=== PATIENT | male | born 1945 | race Caucasian/White ===

== ENCOUNTER 2024-01-17 11:01 | Emergency (ER) | payer MEDICARE, SELFPAY ==
[2024-01-17 11:26] VITALS: BP 175/92
--- NOTE | 2024-01-17 11:28 | ED.GENMED ---
History of Present Illness
General
Chief Complaint: Fall
Source: patient
Time Seen by Provider: 01/17/24 11:07
History of Present Illness
History of Present Illness:
78-year-old male who brought his to the emergency department for evaluation and while ambulating back to the room had an accidental trip and fall causing him to fall backwards into a door resulting in superficial abrasion of the scalp. Patient
denies any loss consciousness, headache, vomiting or visual changes. He denies any extremity related injuries as well. Patient's tetanus vaccine is up-to-date. He denies any use of anticoagulants. He has no other concerns at this time. He
states that he sometimes will trip but it is usually related to his shoes getting caught on the ground that causes him to fall.
Past History
Past History
ED Past Medical History: Other (Hyponatremia) and Other (Lupus)
ED Past Surgical History: Other (Hernia repair)
Social History
Tobacco: Non-smoker
Alcohol: None
Drug: None
Personal:
Living: with family
Employment: Not employed
Review of Systems
Review of Systems
All Other Systems: ROS reviewed and negative except as documented in HPI and ROS
Phy Exam
Physical Exam
Physical Exam:
GENERAL: Alert , in no apparent distress
EYE: conjunctiva clear
Head: Superficial skin tear to the right superior occiput without active bleeding
NECK: Supple, no midline tenderness
ENT: mmm.
LUNGS: no acute respiratory distress
NEUROLOGICAL: Alert and oriented
SKIN: Warm and dry, skin intact.
MUSCULOSKELETAL: well perfused. Moves all extremities without difficult
PSYCH: Normal and appropriate interaction.
Scores
Heart Failure Risk
Heart Failure Risk Score: Not Applicable
Heart Score for Chest Pain Patients
STEMI patient?: Not applicable
Withdrawal Assessment of Alcohol
Withdrawal Assessment Completed?: Not applicable
Course
Vital Signs
Initial and Last Documented VS:
Initial Vital Signs
Temp Pulse Resp BP Pulse Ox
98.3 F 99 16 175/92 98
01/17/24 11:26 01/17/24 11:26 01/17/24 11:26 01/17/24 11:26 01/17/24 11:26
Last Documented Vital Signs
Temp Pulse Resp BP Pulse Ox
98.3 F 99 16 175/92 98
01/17/24 11:26 01/17/24 11:26 01/17/24 11:26 01/17/24 11:26 01/17/24 11:26
MDM/Problems Addressed
Differential Diagnosis Includes:
Accidental trip and fall, scalp contusion, minimal to no concern for intracranial bleeding
MDM/Problems Addressed:
78-year-old male being seen for evaluation after he was here with his and had an accidental trip and fall while ambulating back to the patient's room. He does have a superficial skin tear noted however is in no acute distress. Discussed risk
versus benefit of CT imaging and patient ultimately decided to forego any imaging at this time. Since his is being worked up will monitor the patient in the ER and if any headache or other symptoms develop will then consider head CT. Patient
is agreeable with this plan.
*Pulse Oximetry
Patient hypoxic: no
*Critical Care Note
Total Time (30-74mins, 75-104mins- exclusive of procedures): Not Applicable
Data Reviewed
Further Testing Considered But Not Given:
CT head but patient declines
Patient Management
Escalation/DeEscalation of care consider admission/obs:
Patient ambulating with steady gait. Remains asymptomatic. Feels comfortable being discharged home. Aware of return precautions.
ED Attending Note
-
Portions of this chart may have been created with voice recognition software.� Occasional wrong word or��sound alike� substitutions may have occurred due to the inherent limitations of voice recognition software.
Discharge Plan
Departure
Patient Disposition: Home (Routine Discharge)
Date of Disposition: 01/17/24
Time of Disposition: 12:25
Patient with high blood pressure during this ER visit?: No
Discharge Problem:
Accidental fall, Abrasion of scalp
Instructions: Head Injury in Adults (DC)
Prescriptions:
No Action
atorvastatin 20 MG tablet
20 mg PO DAILY
lorazepam 0.5 MG tablet
0.5 mg PO DAILYPRN PRN (Reason: anxiety)
Patient Comments:
11/08/2021: last filled 08/01/21, 90 tabs for 90 days from [facility]
hydroxychloroquine 200 MG tablet
200 mg PO QPM
calcium carbonate-vitamin D3 [Oyster Shell Calcium-Vit D3] 500 MG tablet
1 tab PO DAILY
sodium chloride 1 GRAM tablet,soluble
2 g PO DAILY
Lactobac 2-Bifido 1-S. therm [High Potency Probiotic] 1 CAP capsule
1 cap PO DAILY
multivitamin with folic acid [Tab-A-Sidney] 1 TABLET tablet
1 tab PO DAILY
Referrals:
Ramu Walker MD [Family Provider] -
Interventions
Interventions:
*Risk Screen - Suicide Last Done: 01/17/24 11:26
*General Assessment Last Done: 01/17/24 11:26
*Neglect/Abuse Screening Last Done: 01/17/24 11:26
ED- Fall Risk Assessment Last Done: 01/17/24 11:26
*ED COVID-19 Vaccine History Last Done: 01/17/24 11:26
*Nursing Disposition Last Done: 01/17/24 12:45
ED-Musculoskeletal Assessment Last Done: 01/17/24 12:46
ED- Neurological Assessment Last Done: 01/17/24 11:26
ED-Skin Assessment Last Done: 01/17/24 11:26
Discharge Date and Time
Discharge Date/Time: 01/17/24 12:46
Print Language: VIETNAMESE
== END 2024-01-17 12:46 | disposition home or self-care (01) ==
LOC: EMR 11:01
PROVIDERS: EMERGENCY PHYSICIAN Student in an Organized Health Care Education/Training Program; FAMILY PHYSICIAN Family Medicine
DX: S00.01XA Abrasion of scalp, initial encounter (principal); W01.0XXA Fall on same level from slipping, tripping and stumbling without subsequent striking against object, initial encounter
CPT/HCPCS: 99282

== ENCOUNTER 2025-01-03 11:33 | Emergency (ER) | payer MEDICARE, SELFPAY ==
[2025-01-03 11:35] VITALS: BP 155/86
[2025-01-03 12:01] LABS: % Basophils 1.2 % (0-2); % Eosinophils 1.5 % (0-6); % Immature Granulocytes 0.1 % (0-0.5); % Lymphocytes 26.7 % (20.5-51.1); % Monocytes 10.4 % (1.7-9.3); % Neutrophils 60.1 % (42.2-75.2); Absolute Basophils 0.1 10^3/uL (0-0.2); Absolute Eosinophils 0.1 10^3/uL (0-0.7); Absolute Lymphocytes 2.2 10^3/uL (1.2-3.4); Absolute Monocytes 0.9 10^3/uL (0.1-0.6); Hematocrit 42.5 % (39.0-52.0); Hemoglobin 13.9 g/dL (13.0-18.0); Mean Corp Hgb Conc. 32.7 g/dL (33.0-37.0); Mean Corpuscular Hgb 29.9 pg (27.0-31.0); Mean Corpuscular Volume 91.4 fL (80.0-94.0); Mean Platelet Volume 10.2 fL (7.4-10.4); Nucleated Red Blood Cells % 0 % (-); Platelet Count 279 10^3/uL (130-400); Red Blood Cell Count 4.65 10^6/uL (4.70-6.10); Red Cell Dist. Width 13.6 % (11.5-14.5); White Blood Cell Count 8.3 10^3/uL (4.8-10.8)
[2025-01-03 12:03] LABS: Urine Albumin 3+ (Neg - Trace); Urine Bilirubin Negative (Negative); Urine Character Clear (Clear); Urine Color Yellow; Urine Glucose Negative (Negative); Urine Ketone Negative (Negative); Urine Leukocyte Negative (Negative); Urine Nitrite Negative (Negative); Urine Occult Blood 1+ (Negative); Urine Specific Gravity 1.015 (<1.030); Urine Urobilinogen Negative (Neg - 1+)
[2025-01-03 12:24] LABS: ALT (SGPT) 16 U/L (0-50); AST (SGOT) 25 U/L (17-59); Albumin 4.4 g/dl (3.5-5.0); Alkaline Phosphatase 78 U/L (38-126); Blood Urea Nitrogen 24 mg/dl (9-20); Calcium 9.6 mg/dl (8.4-10.2); Carbon Dioxide 28 mmol/L (22-30); Chloride 104 mmol/L (98-107); Glucose 104 mg/dl (70-99); Lipase 102 U/L (23-300); Potassium 5.1 mmol/L (3.5-5.1); Sodium 139 mmol/L (135-145); Total Bilirubin 0.8 mg/dl (0.2-1.3); Total Protein 7.8 g/dl (6.3-8.2); eGFR > 60.00
[2025-01-03 12:38] LABS: Urine Mucus Few
[2025-01-03 12:40] LABS: Urine Granular Cast 0-2 /LPF (0); Urine Urothelial Cell 0-2 /LPF (FEW)
[2025-01-03 12:41] LABS: Urine Bacteria Moderate (Negative)
--- NOTE | 2025-01-03 13:41 | ED.GENMED ---
History of Present Illness
<Con Dupont MD, Resident - Last Filed: 01/03/25 20:05>
General
Chief Complaint: Abdominal Pain
Source: patient and family
Exam Limitations: none
Time Seen by Provider: 01/03/25 13:35
Nursing documentation reviewed up to this point in time: agreed with
Travel History
Have you traveled to any high risk areas for coronavirus over the past 14 days?: No
History of Present Illness
History of Present Illness:
79-year-old male presenting in the ER with right-sided lower quadrant abdominal pain which started in the morning; was 9�10. Denies any aggravating or relieving factors. Patient states that he had similar pain last week which also stayed for 1
hour however today the pain was severe in intensity which prompted him to come to the ER. He states that when he had similar pain last week he was able to notice gurgling sounds and states that the area was very hard to touch. Denies any other
symptoms including nausea, vomiting and fever. No other recent changes in the medical history.
He has a known history of left-sided inguinal hernia repair many years ago.
If applicable-neuro sx onset
Onset of symptoms known: Yes
Date of onset of symptoms: 01/03/25
Past History
<Con Dupont MD, Resident - Last Filed: 01/03/25 20:05>
Past History
ED Past Medical History: HTN, Other (Hyponatremia) and Other (Lupus)
ED Past Surgical History: Other (Hernia repair left)
Patient has exhibited threatening behavior?: No
Social History
Tobacco: Non-smoker
Alcohol: None
Drug: None
Personal:
Living: with family
Employment: Not employed
Review of Systems
<Con Dupont MD, Resident - Last Filed: 01/03/25 20:05>
Review of Systems
Allergies reviewed?: Yes
Constitutional: Reports no symptoms
EENT: Reports no symptoms
Respiratory: Reports no symptoms
Cardiac: Reports no symptoms
ABD/GI: Reports abdominal pain (Resolved in the ER)
: Reports no symptoms
Musculoskeletal: Reports no symptoms
Skin: Reports no symptoms
Neurological: Reports no symptoms
Endocrine: Reports no symptoms
Hematologic/Lymphatic: Reports no symptoms
Psychiatric: Reports no symptoms
Phy Exam
<Con Dupont MD, Resident - Last Filed: 01/03/25 20:05>
General Physical Exam
General Presentation: well appearing and no apparent distress
General age: appears stated age
General Skin: warm
General Habitus: normal and elderly
General Hydration: appears well hydrated
Cardiovascular Exam
Cardiovascular Exam: regular rate/rhythm and no murmur
Gastrointestinal Exam
Gastrointestinal Exam: normal bowel sounds, non tender, soft, non distended, no inguinal hernia, no masses and other (No skin changes in the area of concern)
Genitourinary Exam Male
Exam Male: no testicular swelling and no testicular tenderness
Neurological Exam
Neurological Exam: alert, oriented x3 and no sensory deficits
Psychiatric Exam
Psychiatric Exam: normal mood/affect
Course
<Con Dupont MD, Resident - Last Filed: 01/03/25 20:05>
Orders/Labs/Results
Orders:
Orders
01/03/25 11:49
Complete Blood Count/With Diff Urgent
Comprehensive Metabolic Panel Urgent
Lipase Urgent
Urinalysis Reflex To Culture Urgent
Date Specimen was Collected: 01/03/25
Time Specimen was Collected: 11:42
Urine Microscopic Reflex Cult Urgent
Urine Culture Urgent
KARI Source: U
Specimen Description:
Date Specimen was Collected: 01/03/25
Time Specimen was Collected: 11:42
01/03/25 14:05
CT Abd/pelvis W Iv Cont Urgent
Comment:
Reason For Exam: RLQ pain
Abnormal Lab Results
01/03/25
11:49
RBC 4.65 L 10^6/uL
(4.70-6.10)
MCHC 32.7 L g/dL
(33.0-37.0)
Absolute Monos (auto) 0.9 H 10^3/uL
(0.1-0.6)
Monocytes % 10.4 H %
(1.7-9.3)
BUN 24 H mg/dl
(9-20)
Glucose 104 H mg/dl
(70-99)
Ur Occult Blood Reflex 1+ A
(Negative)
Urine RBC 3-6 A /HPF
(0-2)
Urine Bacteria (Reflex) Moderate A
(Negative)
Urine Albumin (Reflex) 3+ A
(Neg - Trace)
01/03/25 11:49
01/03/25 11:49
Vital Signs
Initial and Last Documented VS:
Initial Vital Signs
Temp Pulse Resp BP Pulse Ox
98.1 F 87 16 155/86 98
01/03/25 11:35 01/03/25 11:35 01/03/25 11:35 01/03/25 11:35 01/03/25 11:35
Last Documented Vital Signs
Temp Pulse Resp BP Pulse Ox
97.6 F 78 18 131/67 94
01/03/25 16:28 01/03/25 19:32 01/03/25 19:32 01/03/25 19:32 01/03/25 19:32
<Willow Franco MD - Last Filed: 01/03/25 19:09>
Orders/Labs/Results
Orders:
Orders
01/03/25 11:49
Complete Blood Count/With Diff Urgent
Comprehensive Metabolic Panel Urgent
Lipase Urgent
Urinalysis Reflex To Culture Urgent
Date Specimen was Collected: 01/03/25
Time Specimen was Collected: 11:42
Urine Microscopic Reflex Cult Urgent
Urine Culture Urgent
KARI Source: U
Specimen Description:
Date Specimen was Collected: 01/03/25
Time Specimen was Collected: 11:42
01/03/25 14:05
CT Abd/pelvis W Iv Cont Urgent
Comment:
Reason For Exam: RLQ pain
Abnormal Lab Results
01/03/25
11:49
RBC 4.65 L 10^6/uL
(4.70-6.10)
MCHC 32.7 L g/dL
(33.0-37.0)
Absolute Monos (auto) 0.9 H 10^3/uL
(0.1-0.6)
Monocytes % 10.4 H %
(1.7-9.3)
BUN 24 H mg/dl
(9-20)
Glucose 104 H mg/dl
(70-99)
Ur Occult Blood Reflex 1+ A
(Negative)
Urine RBC 3-6 A /HPF
(0-2)
Urine Bacteria (Reflex) Moderate A
(Negative)
Urine Albumin (Reflex) 3+ A
(Neg - Trace)
01/03/25 11:49
01/03/25 11:49
Vital Signs
Initial and Last Documented VS:
Initial Vital Signs
Temp Pulse Resp BP Pulse Ox
98.1 F 87 16 155/86 98
01/03/25 11:35 01/03/25 11:35 01/03/25 11:35 01/03/25 11:35 01/03/25 11:35
Last Documented Vital Signs
Temp Pulse Resp BP Pulse Ox
97.6 F 78 18 131/67 94
01/03/25 16:28 01/03/25 19:32 01/03/25 19:32 01/03/25 19:32 01/03/25 19:32
<Con Dupont MD, Resident - Last Filed: 01/03/25 20:05>
MDM/Problems Addressed
Differential Diagnosis Includes:
Right sided inguinal hernia vs testicular torsion(less likely) vs hydrocele(less likely) vs less likely AAA is also possibility due to blood in the urine
MDM/Problems Addressed:
Patient reports that patient is totally gone with benign inspection and palpation on physical exam. CBC unremarkable, CMP with mildly elevated BUN likely due to dehydration. Very likely that patient has indirect right-sided inguinal hernia. Given
hematuria on urinalysis we will get CT abdomen/pelvis to rule out any other causes including AAA or malignancy.
<Con Dupont MD, Resident - Last Filed: 01/03/25 20:05>
*Pulse Oximetry
SaO2: 98
Oxygen Mode of Delivery: Room air
Patient hypoxic: no
*Critical Care Note
Total Time (30-74mins, 75-104mins- exclusive of procedures): Not Applicable
ED Attending Note
<Con Dupont MD, Resident - Last Filed: 01/03/25 20:05>
-
Portions of this chart may have been created with voice recognition software.� Occasional wrong word or��sound alike� substitutions may have occurred due to the inherent limitations of voice recognition software.
<Willow Franco MD - Last Filed: 01/03/25 19:09>
ED Attending Note
Patient seen and examined by attending physician: Yes
I performed a history and physical exam of patient and discussed management with resident, I reviewed resident's note and agree with documented findings and plan of care.: Yes
ED Attending Note:
79-year-old male with history of left side inguinal hernia presenting to the emergency department right lower quadrant abdominal pain. Pain is he is at last week he developed right lower quadrant abdominal pain that was transient. This morning he
woke up and developed the same pain again but this time it was more intense. He felt a hard lump with gurgling sounds. No nausea or vomiting. No change in his bowel movements. No skin changes. No scrotal swelling. He states that all of the
pain resolved. There was no palpable bulge but the area did stiffen up. During my evaluation patient is resting comfortably. His abdomen is soft nondistended nontender. There is no obvious bulge in the inguinal region. Differential consists of
inguinal hernia that is likely reduced. Could also be kidney stone given the intermittent nature of the pain and the hematuria on urinalysis. History and exam unlikely for aortic etiology or bowel obstruction. Blood work obtained prior to
evaluation is unremarkable. Given hematuria will obtain CT scan. Anticipate outpatient follow-up with surgery.
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 Per the official read no obstruction. There are some perinephric fat stranding. Urine does not appear infected. He has no urinary symptoms.
He remained pain-free. I discussed with on-call recommend outpatient follow-up with hernia belt. Patient is amenable to this plan. Strict return precautions given.
Discharge Plan
Departure
Patient Disposition: Home (Routine Discharge)
Date of Disposition: 01/03/25
Time of Disposition: 19:01
Patient with high blood pressure during this ER visit?: Yes
Discharge Problem:
Inguinal hernia
Instructions: Groin hernias
Prescriptions:
No Action
atorvastatin 20 MG tablet
20 mg PO DAILY
hydroxychloroquine 200 MG tablet
200 mg PO QPM
calcium carbonate-vitamin D3 [Oyster Shell Calcium-Vit D3] 500 MG tablet
1 tab PO DAILY
sodium chloride 1 GRAM tablet,soluble
2 g PO DAILY
prednisone 5 mg Tablet
5 mg PO DAILY
aspirin 81 mg Tablet,Delayed Release (Dr/Ec)
81 mg PO DAILY
lorazepam [Ativan] 0.5 mg Tablet
0.5 mg PO HS PRN (Reason: insomnia)
furosemide [Lasix] 20 mg Tablet
20 mg PO WEEKLY
Referrals:
Ramu Walker MD [Family Provider, Family Practice]
Alexis Estes MD [Active, Surgical] - Call in 1-3 days for appt
Activity Restrictions/Additional Instructions:
You were seen in the Emergency Department today for your hernia. While you were here we performed a CT scan which showed the inguinal hernia that also contains a part of your kidney. Please make sure you call the surgeon to schedule an appointment.
Please use the hernia belt as discussed.
We would like for you to follow up with your primary care physician for further evaluation. If you experience fever, worsening of your symptoms, or develop any other new or concerning symptoms, please return to the Emergency Department immediately.
Also if you develop any changes in your bowel movement persistent nausea vomiting urinary changes or skin changes overlying the hernia please immediately come to the emergency department.
Please see the attached sheet for additional information.
Interventions
Interventions:
*Risk Screen - Suicide Last Done: 01/03/25 11:37
*General Assessment Last Done: 01/03/25 16:28
*Neglect/Abuse Screening Last Done: 01/03/25 11:37
*ED- Fall Risk Assessment Last Done: 01/03/25 16:28
*ED COVID-19 Vaccine History Last Done: 01/03/25 16:28
*Nursing Disposition Last Done: 01/03/25 19:33
BO-Wqdogs-Aolbofdkvo Assessment Last Done: 01/03/25 16:28
Discharge Date and Time
Discharge Date/Time: 01/03/25 19:34
Print Language: BURUNDIAN
[2025-01-03 16:28] VITALS: BP 141/81; BMI 25.9
[2025-01-03 19:32] VITALS: BP 131/67
--- NOTE | 2025-01-04 06:35 | ED.GENMED ---
History of Present Illness
General
Chief Complaint: Abdominal Pain
Time Seen by Provider: 01/03/25 13:35
Travel History
Have you traveled to any high risk areas for coronavirus over the past 14 days?: No
Past History
Past History
ED Past Medical History: HTN, Other (Hyponatremia) and Other (Lupus)
ED Past Surgical History: Other (Hernia repair left)
Patient has exhibited threatening behavior?: No
Social History
Tobacco: Non-smoker
Alcohol: None
Drug: None
Personal:
Living: with family
Employment: Not employed
Course
Orders/Labs/Results
Orders:
Orders
01/03/25 11:49
Complete Blood Count/With Diff Urgent
Comprehensive Metabolic Panel Urgent
Lipase Urgent
Urinalysis Reflex To Culture Urgent
Date Specimen was Collected: 01/03/25
Time Specimen was Collected: 11:42
Urine Microscopic Reflex Cult Urgent
Urine Culture Urgent
KARI Source: U
Specimen Description:
Date Specimen was Collected: 01/03/25
Time Specimen was Collected: 11:42
01/03/25 14:05
CT Abd/pelvis W Iv Cont Urgent
Comment:
Reason For Exam: RLQ pain
Abnormal Lab Results
01/03/25
11:49
RBC 4.65 L 10^6/uL
(4.70-6.10)
MCHC 32.7 L g/dL
(33.0-37.0)
Absolute Monos (auto) 0.9 H 10^3/uL
(0.1-0.6)
Monocytes % 10.4 H %
(1.7-9.3)
BUN 24 H mg/dl
(9-20)
Glucose 104 H mg/dl
(70-99)
Ur Occult Blood Reflex 1+ A
(Negative)
Urine RBC 3-6 A /HPF
(0-2)
Urine Bacteria (Reflex) Moderate A
(Negative)
Urine Albumin (Reflex) 3+ A
(Neg - Trace)
01/03/25 11:49
01/03/25 11:49
Vital Signs
Initial and Last Documented VS:
Initial Vital Signs
Temp Pulse Resp BP Pulse Ox
98.1 F 87 16 155/86 98
01/03/25 11:35 01/03/25 11:35 01/03/25 11:35 01/03/25 11:35 01/03/25 11:35
Last Documented Vital Signs
Temp Pulse Resp BP Pulse Ox
97.6 F 78 18 131/67 94
01/03/25 16:28 01/03/25 19:32 01/03/25 19:32 01/03/25 19:32 01/03/25 19:32
*Pulse Oximetry
SaO2: 94
Oxygen Mode of Delivery: Room air
ED Attending Note
-
Portions of this chart may have been created with voice recognition software.� Occasional wrong word or��sound alike� substitutions may have occurred due to the inherent limitations of voice recognition software.
Discharge Plan
Departure
Patient Disposition: Home (Routine Discharge)
Date of Disposition: 01/03/25
Time of Disposition: 19:01
Patient with high blood pressure during this ER visit?: Yes
Discharge Problem:
Inguinal hernia
Instructions: Groin hernias
Prescriptions:
No Action
atorvastatin 20 MG tablet
20 mg PO DAILY
hydroxychloroquine 200 MG tablet
200 mg PO QPM
calcium carbonate-vitamin D3 [Oyster Shell Calcium-Vit D3] 500 MG tablet
1 tab PO DAILY
sodium chloride 1 GRAM tablet,soluble
2 g PO DAILY
prednisone 5 mg Tablet
5 mg PO DAILY
aspirin 81 mg Tablet,Delayed Release (Dr/Ec)
81 mg PO DAILY
lorazepam [Ativan] 0.5 mg Tablet
0.5 mg PO HS PRN (Reason: insomnia)
furosemide [Lasix] 20 mg Tablet
20 mg PO WEEKLY
Referrals:
Ramu Walker MD [Family Provider, Family Practice]
Alexis Estes MD [Active, Surgical] - Call in 1-3 days for appt
Activity Restrictions/Additional Instructions:
You were seen in the Emergency Department today for your hernia. While you were here we performed a CT scan which showed the inguinal hernia that also contains a part of your kidney. Please make sure you call the surgeon to schedule an appointment.
Please use the hernia belt as discussed.
We would like for you to follow up with your primary care physician for further evaluation. If you experience fever, worsening of your symptoms, or develop any other new or concerning symptoms, please return to the Emergency Department immediately.
Also if you develop any changes in your bowel movement persistent nausea vomiting urinary changes or skin changes overlying the hernia please immediately come to the emergency department.
Please see the attached sheet for additional information.
Interventions
Interventions:
*Risk Screen - Suicide Last Done: 01/03/25 11:37
*General Assessment Last Done: 01/03/25 16:28
*Neglect/Abuse Screening Last Done: 01/03/25 11:37
*ED- Fall Risk Assessment Last Done: 01/03/25 16:28
*ED COVID-19 Vaccine History Last Done: 01/03/25 16:28
*Nursing Disposition Last Done: 01/03/25 19:33
MF-Rnqljc-Cbsoaybjvr Assessment Last Done: 01/03/25 16:28
Discharge Date and Time
Discharge Date/Time: 01/03/25 19:34
Print Language: [place]
== END 2025-01-03 19:34 | disposition home or self-care (01) ==
LOC: EMR 11:33
PROVIDERS: Emergency Medicine; EMERGENCY PHYSICIAN Student in an Organized Health Care Education/Training Program; FAMILY PHYSICIAN Family Medicine
DX: K40.90 Unilateral inguinal hernia, without obstruction or gangrene, not specified as recurrent (principal); I10 Essential (primary) hypertension; R31.9 Hematuria, unspecified; Q63.2 Ectopic kidney
CPT/HCPCS: 99284; 74177; 80053; 81003; 81015; 83690; 85025; 87086; Q9967